=== PATIENT | female | born 1980 | race Two or more races ===

== ENCOUNTER 2016-08-22 16:23 | Emergency (ER) | payer MEDICAID, OTHER ==
[~2016-08-22] VITALS: Ht 157.5 cm; Wt 54.0 kg
[~2016-08-22 16:23] MED LIST: NITR100C56 PO; ONDA4TAB10 PO; ONDA4TAB13 SL; RANI150T8 PO
[2016-08-22] MEDS ORDERED: MAALOX/HYOSCYAMINE/LIDOCAINE 45 ML BOTTLE ONE (16:40)
[2016-08-22] MEDS ORDERED: ONDANSETRON 2MG/ML, 2ML ONE (16:40)
[2016-08-22] MEDS ORDERED: MORPHINE SULFATE 4 MG/ML, 1ML ONE (16:41)
[2016-08-22] MEDS ORDERED: FAMOTIDINE 20 MG/2 ML ONE (16:42)
[2016-08-22] MEDS ORDERED: SODIUM CHLORIDE 0.9% 1,000ML IVBOLUS ONE (17:00)
[2016-08-22] MEDS ORDERED: ONDANSETRON 2MG/ML, 2ML IVPush ONE (17:00)
[2016-08-22] MEDS ORDERED: MAALOX/HYOSCYAMINE/LIDOCAINE 45 ML BOTTLE PO ONE (17:00)
[2016-08-22] MEDS ORDERED: SODIUM CHLORIDE FLUSH 10ML SYR IVF ONE (17:00)
[2016-08-22] MEDS ORDERED: FAMOTIDINE 20 MG/2 ML IVP ONE (17:00)
[2016-08-22] MEDS ORDERED: MORPHINE SULFATE 4 MG/ML, 1ML IVPush PRN (17:00)
[2016-08-22 17:02] LABS: ASPARTATE AMINO TRANSFERASE 79 U/L (15-37); BLOOD UREA NITROGEN 12 mg/dL (7-18)
[2016-08-22 17:11] LABS: ANISOCYTOSIS 1+
[2016-08-22 17:12] LABS: POLYCHROMASIA 1+
[2016-08-22 17:28] VITALS: BP 90/60
== END 2016-08-22 18:08 | disposition home or self-care (01) ==
LOC: ED 16:24
DX: K52.9 Noninfective gastroenteritis and colitis, unspecified (principal); K29.00 Acute gastritis without bleeding; Z90.49 Acquired absence of other specified parts of digestive tract
CPT/HCPCS: 36415; 80053; 83690; 84703; 85025; 96361; 96374; 96375; 99284; J2405; J7030; S0028